=== PATIENT | female | born 1950 | race Caucasian/White ===

== ENCOUNTER 2017-07-10 13:13 | Emergency (ER) | payer OTHER, MEDICARE ==
[~2017-07-10] VITALS: Ht 157.5 cm; Wt 131.8 kg
[2017-07-10 15:57] LABS: MCH 28.8 PG (29.0-34.0); MCHC 32.7 G/DL (30.0-36.0); MCV 88.1 FL (83-99); MEAN PLAT.VOLUME 10.2 uM^3 (9.5-12.4); PLATELET COUNT 172 K/uL (156-360); RBC DIS.WIDTH-CV 13.2 % (11.8-14.6); RBC DIS.WIDTH-SD 42.9 % (39-53); RED BLOOD COUNT 5.11 M/uL (3.80-5.20); WHITE BLOOD COUNT 6.8 K/uL (4.1-10.2)
[2017-07-10 16:06] LABS: CHLORIDE 108 mEq/L (99-109); SODIUM 140 mEq/L (136-147)
[2017-07-10 16:08] LABS: GLUCOSE 156 mg/dL (70-99)
[2017-07-10 16:09] LABS: ANION GAP 9 MEQ/L (2-14)
[2017-07-10 16:11] LABS: GFR ESTIMATE (CALCULATED) > 59 mL/min/
[2017-07-10 16:12] LABS: UREA NITROGEN (BUN) 14 mg/dL (9-23)
[2017-07-10 16:14] LABS: CREATINE KINASE 59 IU/L (1-294)
[2017-07-10] MEDS ORDERED: FIORICET 50-301 EACH PO (17:38)
[2017-07-10] MEDS ORDERED: MOTRIN600 MG PO (17:38)
[2017-07-10 18:02] VITALS: BP 130/66
== END 2017-07-10 18:04 | disposition home or self-care (01) ==
LOC: EXP 13:13 → EME 13:13 → EXP 18:04
PROVIDERS: Physician Assistant
DX: R51 Headache (principal); M79.1 Myalgia; R79.89 Other specified abnormal findings of blood chemistry; Z91.81 History of falling; E11.9 Type 2 diabetes mellitus without complications; Z87.442 Personal history of urinary calculi; Z87.440 Personal history of urinary (tract) infections; Z87.891 Personal history of nicotine dependence
CPT/HCPCS: 70450; 80048; 82550; 84443; 85027; 99281; 99283

== ENCOUNTER 2017-07-13 07:22 | Emergency (ER) | payer OTHER, MEDICARE ==
[~2017-07-13] VITALS: Ht 157.5 cm; Wt 127.0 kg
[~2017-07-13 07:22] MED LIST: FIORICET 50-301 EACH PO; MOTRIN600 MG PO
[2017-07-13] MEDS ORDERED: NORCO 5/3251 TABLET PO (09:41)
[2017-07-13] MEDS ORDERED: FIORICET 50-301 EACH PO (09:47)
[2017-07-13 10:31] VITALS: BP 00/00
== END 2017-07-13 10:33 | disposition home or self-care (01) ==
LOC: EME → EDBD 07:22 → EME 07:51
DX: M54.2 Cervicalgia (principal); R51 Headache; W18.30XA Fall on same level, unspecified, initial encounter; Z87.442 Personal history of urinary calculi; Z87.891 Personal history of nicotine dependence
CPT/HCPCS: 72125; 99281; 99284

== ENCOUNTER 2017-10-21 00:31 | Emergency (ER) | payer OTHER, MEDICARE ==
[~2017-10-21] VITALS: Ht 157.5 cm; Wt 131.8 kg
[~2017-10-21 00:31] MED LIST changes: +NORCO 5/3251 TABLET PO
[2017-10-21 01:26] LABS: HEMATOCRIT 46.7 % (36.0-46.0); MCH 28.5 PG (29.0-34.0); MCHC 32.1 G/DL (30.0-36.0); MCV 88.8 FL (83-99); MEAN PLAT.VOLUME 10.9 uM^3 (9.5-12.4); PLATELET COUNT 167 K/uL (156-360); RBC DIS.WIDTH-CV 13.2 % (11.8-14.6); RBC DIS.WIDTH-SD 42.9 % (39-53); RED BLOOD COUNT 5.26 M/uL (3.80-5.20)
[2017-10-21 01:39] LABS: CHLORIDE 105 mEq/L (99-109); POTASSIUM 4.1 mEq/L (3.7-5.4); SODIUM 136 mEq/L (136-147)
[2017-10-21 01:41] LABS: GLUCOSE 162 mg/dL (70-99)
[2017-10-21 01:42] LABS: ANION GAP 11 MEQ/L (2-14)
[2017-10-21 01:43] LABS: TOTAL BILIRUBIN 0.9 mg/dL (0.0-1.0)
[2017-10-21 01:45] LABS: ALKALINE PHOSPHATASE 103 IU/L (3-129); GFR ESTIMATE (CALCULATED) 52 mL/min/
[2017-10-21 01:46] LABS: UREA NITROGEN (BUN) 20 mg/dL (9-23)
[2017-10-21 05:51] LABS: ADD MIUA? YES; BILIRUBIN NEGATIVE; BLOOD SMALL; COLOR YELLOW ((YELLOW)); GLUCOSE (STRIP) 50; KETONES NEGATIVE; LEUKOCYTES NEGATIVE; NITRITE NEGATIVE; PROTEIN (STRIP) NEGATIVE; SPECIFIC GRAVITY 1.023 (1.000-1.030)
[2017-10-21 06:27] LABS: BACTERIA NONE SEEN /HPF; EPITHELIAL CELLS RARE /HPF; HYALINE CASTS 0-5 /LPF; MUCUS 2+ /LPF; RED BLOOD CELLS 30-40 /HPF (0-5); UCUL ADDED? YES
[2017-10-21 10:35] VITALS: BP 108/72
== END 2017-10-21 10:39 | disposition left against medical advice (07) ==
LOC: EME 00:31
DX: G43.909 Migraine, unspecified, not intractable, without status migrainosus (principal); M17.11 Unilateral primary osteoarthritis, right knee; R26.2 Difficulty in walking, not elsewhere classified; E11.9 Type 2 diabetes mellitus without complications; Z87.440 Personal history of urinary (tract) infections; Z87.442 Personal history of urinary calculi; Z87.891 Personal history of nicotine dependence; Z88.2 Allergy status to sulfonamides; Z88.1 Allergy status to other antibiotic agents
CPT/HCPCS: 70450; 73564; 80053; 81003; 85027; 87086; 99281; 99285; G8978 GP CM; G8979 GP CK; G8980 GP CM; J0780; J1885

== ENCOUNTER 2017-12-03 03:31 | Inpatient (IN) | payer OTHER, MEDICARE ==
[~2017-12-03] VITALS: Ht 157.5 cm; Wt 122.5 kg
[2017-12-03 05:38] LABS: HEMATOCRIT 43.7 % (36.0-46.0); HEMOGLOBIN 14.4 G/DL (11.9-15.5); MCH 28.7 PG (29.0-34.0); MCV 87.1 FL (83-99); PLATELET COUNT 186 K/uL (156-360); RBC DIS.WIDTH-CV 13.2 % (11.8-14.6); RBC DIS.WIDTH-SD 41.9 % (39-53); RED BLOOD COUNT 5.02 M/uL (3.80-5.20); WHITE BLOOD COUNT 8.8 K/uL (4.1-10.2)
[2017-12-03 05:59] LABS: ALBUMIN 3.4 g/dL (3.2-4.8); CHLORIDE 104 mEq/L (99-109); POTASSIUM 3.9 mEq/L (3.7-5.4); SODIUM 137 mEq/L (136-147)
[2017-12-03 06:01] LABS: GLUCOSE 196 mg/dL (70-99)
[2017-12-03 06:03] LABS: TOTAL BILIRUBIN 0.8 mg/dL (0.0-1.0)
[2017-12-03 06:05] LABS: ALKALINE PHOSPHATASE 96 IU/L (3-129); CREATININE 1.1 mg/dL (0.6-1.3); GFR ESTIMATE (CALCULATED) 52 mL/min/
[2017-12-03 06:06] LABS: UREA NITROGEN (BUN) 18 mg/dL (9-23)
[2017-12-03 06:07] LABS: AST (GOT) 15 IU/L (2-34)
[2017-12-03 06:08] LABS: ALT (GPT) 16 IU/L (3-49)
[2017-12-03 06:25] LABS: APPEARANCE SL.HAZY ((CLEAR)); BILIRUBIN NEGATIVE; BLOOD NEGATIVE; COLOR AMBER ((YELLOW)); GLUCOSE (STRIP) 50; KETONES NEGATIVE; LEUKOCYTES NEGATIVE; NITRITE NEGATIVE; PROTEIN (STRIP) 30; SPECIFIC GRAVITY 1.021 (1.000-1.030)
[2017-12-03 06:39] LABS: BACTERIA NONE SEEN /HPF; EPITHELIAL CELLS 1+ /HPF; HYALINE CASTS 20-30 /LPF; MUCUS 3+ /LPF; RED BLOOD CELLS 0-5 /HPF (0-5); UCUL ADDED? YES
[2017-12-03 08:53] LABS: TROP-I INTERPRETATION NEGATIVE; TROPONIN-I 0.01 ng/mL (0.0-0.30)
[2017-12-03 09:25] VITALS: BP 128/70
[2017-12-03 12:59] VITALS: BP 126/77
[2017-12-03] MEDS ORDERED: B-121000 MC2 PO (13:01)
[2017-12-03] MEDS ORDERED: VITAMIN D2000 UNI1 PO (13:01)
[2017-12-03] MEDS ORDERED: PERCOCET 5/31 TABLET PO (13:01)
[2017-12-03] MEDS ORDERED: AMARYL4 MG PO (13:02)
[2017-12-03] MEDS ORDERED: VOLTAREN50 MG PO (13:02)
[2017-12-03] MEDS ORDERED: ERGOCALCIF50000 UNIT PO (13:02)
[2017-12-03] MEDS ORDERED: PLAQUENIL200 MG PO (13:03)
[2017-12-03] MEDS ORDERED: NYSTATIN15 GM TP (13:03)
[2017-12-03] MEDS ORDERED: TOLTERODINE TART4 MG PO (13:04)
[2017-12-03] MEDS ORDERED: FOLIC ACID1 MG PO (13:04)
[2017-12-03] MEDS ORDERED: LEVO-T100 MCG PO (13:05)
[2017-12-03] MEDS ORDERED: ONCE DAILY1 EACH PO (13:06)
[2017-12-03] MEDS ORDERED: LOVASTATIN40 MG PO (13:06)
[2017-12-03] MEDS ORDERED: BENADRYL ALLERG25 MG PO (13:07)
[2017-12-03 20:01] VITALS: BP 120/53
[2017-12-04 00:01] VITALS: BP 138/81
[2017-12-04 05:59] LABS: TROP-I INTERPRETATION NEGATIVE; TROPONIN-I < 0.01 ng/mL (0.0-0.30)
[2017-12-04 07:54] LABS: Estimated Average Glucose 174 mg/dL (70-123); HEMOGLOBIN A1c (GLYCOHEMOGLOB) 7.7 % HGB (Below 5.7)
[2017-12-04 10:00] VITALS: BP 128/70
== END 2017-12-04 15:13 | disposition home health service (06) | DRG 948 ==
LOC: EME → EDBD 03:31 → EDOF 07:23 → ENRESERV 07:23 → EDOF 07:23 → ENRESERV 07:48 → 5WEST 09:03
PROVIDERS: Hospitalist; Physician Assistant
DX: R53.1 Weakness (principal); R41.0 Disorientation, unspecified; T37.8X5A Adverse effect of other specified systemic anti-infectives and antiparasitics, initial encounter; N39.0 Urinary tract infection, site not specified; E11.9 Type 2 diabetes mellitus without complications; E03.9 Hypothyroidism, unspecified; M06.9 Rheumatoid arthritis, unspecified; G43.909 Migraine, unspecified, not intractable, without status migrainosus; E66.9 Obesity, unspecified; M19.90 Unspecified osteoarthritis, unspecified site; Z68.42 Body mass index [BMI] 45.0-49.9, adult; Z87.440 Personal history of urinary (tract) infections; Z87.442 Personal history of urinary calculi; Z87.891 Personal history of nicotine dependence; Z90.710 Acquired absence of both cervix and uterus
CPT/HCPCS: 70450; 71046; 76770; 80053; 81003; 82948; 83036; 83605; 84484; 85027; 87040; 87086; 87502; 93005; 99281; 99285; J0692; J1650; J7030; J7040

== ENCOUNTER 2018-03-15 15:55 | Inpatient (IN) | payer OTHER, MEDICARE ==
[~2018-03-15] VITALS: Ht 157.5 cm; Wt 116.7 kg
[~2018-03-15 15:55] MED LIST changes: +AMARYL4 MG PO; +B-121000 MC2 PO; +BENADRYL ALLERG25 MG PO; +ERGOCALCIF50000 UNIT PO; +FOLIC ACID1 MG PO; +LEVO-T100 MCG PO; +LOVASTATIN40 MG PO; +NYSTATIN15 GM TP; +ONCE DAILY1 EACH PO; +PERCOCET 5/31 TABLET PO; +PLAQUENIL200 MG PO; +TOLTERODINE TART4 MG PO; +VITAMIN D2000 UNI1 PO; +VOLTAREN50 MG PO
[2018-03-15 17:07] LABS: HEMATOCRIT 44.7 % (36.0-46.0); HEMOGLOBIN 14.8 G/DL (11.9-15.5); MCH 28.8 PG (29.0-34.0); MCHC 33.1 G/DL (30.0-36.0); MCV 87.1 FL (83-99); PLATELET COUNT 212 K/uL (156-360); RBC DIS.WIDTH-CV 14.1 % (11.8-14.6); RBC DIS.WIDTH-SD 45.2 % (39-53); RED BLOOD COUNT 5.13 M/uL (3.80-5.20); WHITE BLOOD COUNT 6.8 K/uL (4.1-10.2)
[2018-03-15 17:14] LABS: INTER. NORMALIZED RATIO 1.1
[2018-03-15 17:15] LABS: ALBUMIN 3.5 g/dL (3.2-4.8); CHLORIDE 108 mEq/L (99-109)
[2018-03-15 17:16] LABS: POTASSIUM 4.2 mEq/L (3.7-5.4); PTT 23.3 SEC (25-37); SODIUM 141 mEq/L (136-147)
[2018-03-15 17:18] LABS: GLUCOSE 157 mg/dL (70-99); TOTAL PROTEIN 6.7 g/dL (6.4-8.3)
[2018-03-15 17:20] LABS: TOTAL BILIRUBIN 0.6 mg/dL (0.0-1.0)
[2018-03-15 17:21] LABS: ALKALINE PHOSPHATASE 94 IU/L (3-129); CREATININE 1.1 mg/dL (0.6-1.3); GFR ESTIMATE (CALCULATED) 52 mL/min/
[2018-03-15 17:23] LABS: AST (GOT) 17 IU/L (2-34); UREA NITROGEN (BUN) 25 mg/dL (9-23)
[2018-03-15 17:24] LABS: ALT (GPT) 18 IU/L (3-49)
[2018-03-15 17:27] LABS: TROP-I INTERPRETATION NEGATIVE; TROPONIN-I < 0.01 ng/mL (0.0-0.30)
[2018-03-15 17:27] LABS: APPEARANCE SL.HAZY ((CLEAR)); BILIRUBIN NEGATIVE; BLOOD SMALL; COLOR YELLOW ((YELLOW)); GLUCOSE (STRIP) NEGATIVE; KETONES NEGATIVE; LEUKOCYTES SMALL; NITRITE POSITIVE; PROTEIN (STRIP) NEGATIVE; SPECIFIC GRAVITY 1.017 (1.000-1.030); UROBILINOGEN 0.2 MG/DL (0.2-1.0)
[2018-03-15 17:40] LABS: BACTERIA 2+ /HPF; EPITHELIAL CELLS RARE /HPF; HYALINE CASTS 0-5 /LPF; MUCUS TRACE /LPF; RED BLOOD CELLS 0-5 /HPF (0-5); UCUL ADDED? YES; WHITE BLOOD CELLS 20-30 /HPF (0-5)
[2018-03-15 18:16] LABS: THYROTROPIN (TSH) 10.4 MIU/L (0.4-5.5)
[2018-03-15] MEDS ORDERED: TRIMETHOPRIM100 MG PO (23:03)
[2018-03-15] MEDS ORDERED: LOW DOSE ASPIRI81 M1 PO (23:03)
[2018-03-16 02:14] VITALS: BP 128/67
[2018-03-16 08:37] VITALS: BP 134/72
[2018-03-16 10:20] LABS: BASOPHIL (%) 0.9 % (0-1); BASOPHIL COUNT 0.1 K/uL (0-0.1); EOSINOPHIL (%) 4.4 % (0-5); EOSINOPHIL COUNT 0.3 K/uL (0-0.3); HEMATOCRIT 46.5 % (36.0-46.0); HEMOGLOBIN 15.3 G/DL (11.9-15.5); IMMATURE GRANULOCYTE (%) 0.2 % (0.0-0.7); LYMPHOCYTE (%) 21.8 % (15-42); LYMPHOCYTE COUNT 1.2 K/uL (1.0-2.8); MCH 28.6 PG (29.0-34.0); MCHC 32.9 G/DL (30.0-36.0); MCV 86.9 FL (83-99); MONOCYTE (%) 8.6 % (3-12); MONOCYTE COUNT 0.5 K/uL (0-0.8); NEUTROPHIL (%) 64.1 % (45-76); NEUTROPHIL COUNT 3.7 K/uL (1.8-6.4); PLATELET COUNT 191 K/uL (156-360); RBC DIS.WIDTH-CV 13.9 % (11.8-14.6); RBC DIS.WIDTH-SD 44.6 % (39-53); RED BLOOD COUNT 5.35 M/uL (3.80-5.20); WHITE BLOOD COUNT 5.7 K/uL (4.1-10.2)
[2018-03-16 10:45] LABS: CHLORIDE 107 MEQ/L (99-109); CREATININE 0.9 MG/DL (0.6-1.3); GFR ESTIMATE (CALCULATED) > 59 mL/min/; GLUCOSE 126 mg/dL (70-99); POTASSIUM 4.1 MEQ/L (3.7-5.4); SODIUM 137 MEQ/L (136-147); UREA NITROGEN (BUN) 17 mg/dL (9-23)
[2018-03-16 12:40] VITALS: BP 128/70
[2018-03-16 19:30] VITALS: BP 141/70
[2018-03-16 23:30] VITALS: BP 133/86
[2018-03-17 03:35] VITALS: BP 142/66
[2018-03-17 07:32] VITALS: BP 136/76
[2018-03-17 07:32] LABS: HEMATOCRIT 43.1 % (36.0-46.0); MCH 28.3 PG (29.0-34.0); MCHC 32.5 G/DL (30.0-36.0); MCV 87.1 FL (83-99); PLATELET COUNT 184 K/uL (156-360); RBC DIS.WIDTH-CV 14.2 % (11.8-14.6); RBC DIS.WIDTH-SD 45.5 % (39-53); RED BLOOD COUNT 4.95 M/uL (3.80-5.20); WHITE BLOOD COUNT 4.9 K/uL (4.1-10.2)
[2018-03-17 07:54] LABS: CHLORIDE 110 MEQ/L (99-109); GFR ESTIMATE (CALCULATED) 58 mL/min/; GLUCOSE 125 mg/dL (70-99); POTASSIUM 3.8 MEQ/L (3.7-5.4); SODIUM 140 MEQ/L (136-147); UREA NITROGEN (BUN) 17 mg/dL (9-23)
[2018-03-17 11:38] VITALS: BP 151/76
[2018-03-17 15:45] VITALS: BP 138/70
[2018-03-18 01:16] VITALS: BP 128/66
[2018-03-18 03:54] VITALS: BP 130/73
[2018-03-18 07:28] VITALS: BP 138/65
[2018-03-18 16:00] VITALS: BP 136/80
[2018-03-19 00:31] VITALS: BP 138/67
[2018-03-19 07:40] VITALS: BP 130/72
[2018-03-19] MEDS ORDERED: CEFEPIME HCL1 GM IV (10:27)
== END 2018-03-19 12:07 | disposition home health service (06) | DRG 71 ==
LOC: EME 15:55 → 2EASTP 22:58 → EDOF 22:58 → ENRESERV 23:00 → 2EASTP 03-16 01:47 → ENRESERV 03-17 18:44 → 2EAST 03-17 18:44
PROVIDERS: Emergency Medicine Emergency Medical Services; Hospitalist
DX: G93.49 Other encephalopathy (principal); N39.0 Urinary tract infection, site not specified; B96.20 Unspecified Escherichia coli [E. coli] as the cause of diseases classified elsewhere; R32 Unspecified urinary incontinence; E03.9 Hypothyroidism, unspecified; E11.9 Type 2 diabetes mellitus without complications; E78.5 Hyperlipidemia, unspecified; M06.9 Rheumatoid arthritis, unspecified; G43.909 Migraine, unspecified, not intractable, without status migrainosus; N81.6 Rectocele; R27.8 Other lack of coordination; E66.9 Obesity, unspecified; I69.354 Hemiplegia and hemiparesis following cerebral infarction affecting left non-dominant side; Z68.42 Body mass index [BMI] 45.0-49.9, adult; Z79.82 Long term (current) use of aspirin; Z87.891 Personal history of nicotine dependence; Z88.2 Allergy status to sulfonamides
CPT/HCPCS: 70450; 71045; 74176; 80048; 80053; 81003; 82948; 83880; 84439; 84443; 84484; 85025; 85027; 85610; 85730; 87077; 87086; 87186; 93005; 97530 GP; 99281; 99285; C1753; J0692; J0696; J1650; J1815; J7030; J7040

== ENCOUNTER 2018-07-05 08:30 | Emergency (ER) | payer OTHER, MEDICARE ==
[~2018-07-05] VITALS: Ht 157.5 cm; Wt 106.2 kg
[~2018-07-05 08:30] MED LIST changes: +CEFEPIME HCL1 GM IV; +LOW DOSE ASPIRI81 M1 PO; +TRIMETHOPRIM100 MG PO
[2018-07-05 09:11] LABS: BASOPHIL (%) 1.2 % (0-1); BASOPHIL COUNT 0.1 K/uL (0-0.1); EOSINOPHIL (%) 6.3 % (0-5); EOSINOPHIL COUNT 0.3 K/uL (0-0.3); HEMATOCRIT 48.2 % (36.0-46.0); IMMATURE GRANULOCYTE (%) 0.2 % (0.0-0.7); LYMPHOCYTE (%) 34.1 % (15-42); LYMPHOCYTE COUNT 1.7 K/uL (1.0-2.8); MCHC 33.2 G/DL (30.0-36.0); MCV 87.3 FL (83-99); MONOCYTE (%) 10.1 % (3-12); MONOCYTE COUNT 0.5 K/uL (0-0.8); NEUTROPHIL (%) 48.1 % (45-76); NEUTROPHIL COUNT 2.4 K/uL (1.8-6.4); PLATELET COUNT 132 K/uL (156-360); RBC DIS.WIDTH-CV 14.7 % (11.8-14.6); RBC DIS.WIDTH-SD 47.7 % (39-53); RED BLOOD COUNT 5.52 M/uL (3.80-5.20)
[2018-07-05 09:25] LABS: CHLORIDE 106 mEq/L (99-109); POTASSIUM 3.7 mEq/L (3.7-5.4); SODIUM 141 mEq/L (136-147)
[2018-07-05 09:26] LABS: GLUCOSE 119 mg/dL (70-99)
[2018-07-05 09:30] LABS: CREATININE 0.8 mg/dL (0.6-1.3); GFR ESTIMATE (CALCULATED) > 59 mL/min/
[2018-07-05 09:31] LABS: UREA NITROGEN (BUN) 13 mg/dL (9-23)
[2018-07-05 09:38] LABS: APPEARANCE CLOUDY ((CLEAR)); BILIRUBIN NEGATIVE; BLOOD LARGE; COLOR AMBER ((YELLOW)); GLUCOSE (STRIP) NEGATIVE; KETONES 5; LEUKOCYTES SMALL; NITRITE POSITIVE; PROTEIN (STRIP) 30; SPECIFIC GRAVITY 1.019 (1.000-1.030)
[2018-07-05 10:00] LABS: EPITHELIAL CELLS 1+ /HPF
[2018-07-05 10:01] LABS: BACTERIA 2+ /HPF; MUCUS NONE SEEN /LPF; UCUL ADDED? YES
[2018-07-05] MEDS ORDERED: LEVAQUIN500 MG PO (10:44)
[2018-07-05] MEDS ORDERED: KENALOG,ARISTOC15 G2 TP (10:47)
[2018-07-05 12:20] VITALS: BP 116/72
== END 2018-07-05 12:20 | disposition home or self-care (01) ==
LOC: EME 08:30
PROVIDERS: Emergency Medicine
DX: N39.0 Urinary tract infection, site not specified (principal); S09.90XA Unspecified injury of head, initial encounter; W18.30XA Fall on same level, unspecified, initial encounter; K21.9 Gastro-esophageal reflux disease without esophagitis; E11.9 Type 2 diabetes mellitus without complications; Z87.442 Personal history of urinary calculi; Z87.891 Personal history of nicotine dependence; Z87.440 Personal history of urinary (tract) infections; Z79.82 Long term (current) use of aspirin; Z88.2 Allergy status to sulfonamides
CPT/HCPCS: 70450; 71045; 80048; 81003; 85025; 87077; 87086; 87186; 99281; 99285; J0696